=== PATIENT | female | born 1970 | race Caucasian/White ===

== ENCOUNTER 2017-01-28 09:56 | Inpatient (IN) | payer MEDICARE, OTHER ==
[2017-01-28] MEDS ORDERED: SODIUM CHLORIDE 0.9% 500 ML IV ONE (09:59)
--- NOTE | 2017-01-28 10:03 | ED ---
General Adult HPI - General Stated complaint: Overdose Time Seen by Provider: 01/28/17 09:56 Source: RN notes reviewed - History of Present Illness Initial comments: This is a 46-year-old female presents to the emergency department complaining of altered mental status. A therapist came to the house today and found her to be much more lethargic than normal. Patient is alert and oriented 3 but she easily falls asleep during conversation. Patient states she thinks she took an extra Valium today and that is why she is so tired. Patient also is on oxycodone and methadone. Patient denies any headache patient denies numbness weakness. Patient denies any lightheadedness dizziness or syncopal episode. Patient denies chest pain palpitations difficulty breathing or shortness of breath per patient denies abdominal pain patient denies nausea vomiting diarrhea. Patient states her left leg is swollen but it is always swollen she does not believe is any different than normal. Because her condition not sure how accurate this is we will the ultrasound in that leg. - Related Data Home Medications Medication Instructions Recorded Confirmed Sertraline [Zoloft] 150 mg PO HS 07/22/14 01/28/17 Gabapentin [Neurontin] 100 mg PO Q8H 05/29/16 01/28/17 Diazepam [Valium] 5 mg PO Q8H PRN 01/28/17 01/28/17 Methadone [Dolophine] 10 mg PO TID 01/28/17 01/28/17 Potassium Chloride [Klor-Con 20] 40 meq PO BID 01/28/17 01/28/17 busPIRone HCl [Buspar] 5 mg PO TID 01/28/17 01/28/17 oxyCODONE HCL 10 mg PO Q6HR PRN 01/28/17 01/28/17 oxyCODONE-APAP 10-325MG [Percocet 1 tab PO Q3H PRN 01/28/17 01/28/17 10-325 mg] traZODone HCL 100 mg PO HS 01/28/17 01/28/17 Allergies Allergy/AdvReac Type Severity Reaction Status Date / Time adhesive tape Allergy Rash/Hives Verified 01/28/17 10:30 egg Allergy Dyspnea Verified 01/28/17 10:30 codeine AdvReac Unknown Verified 01/28/17 10:30 furosemide [From Lasix] AdvReac Dyspnea Verified 01/28/17 10:30 ziprasidone HCl [From Geodon] AdvReac Unknown Verified 01/28/17 10:30 ziprasidone mesylate AdvReac Unknown Verified 01/28/17 10:30 [From Geodon] Review of Systems ROS Statement: Those systems with pertinent positive or pertinent negative responses have been documented in the HPI. ROS Other: All systems not noted in ROS Statement are negative. Past Medical History Past Medical History: Hypertension, Liver Disease, Osteoarthritis (OA) Additional Past Medical History / Comment(s): Chronic hepatitis C viral infection, IVDA specifically IV heroin use, polysubstance abuse, nephrolithiasis , glucoma, gout, sciatica and chronic back pain, seizure disorder, chronic pain and the patient has been maintained on methadone for heroin abuse. History of Any Multi-Drug Resistant Organisms: MRSA Date of last positivie culture/infection: 05/29/16 MDRO Source:: Blood Past Surgical History: Adenoidectomy, Section, Cholecystectomy, Tonsillectomy, Tubal Ligation Additional Past Surgical History / Comment(s): kidney surgeries to removed multiple kideny stones had stents since removed but pt stated has a double j catheter in place, x2 c-sections,tubes in ears(pt stated multiple times), lt eye sx(had infection in eye behind the pupil) Past Anesthesia/Blood Transfusion Reactions: Previous Problems w/ Anesthesia Additional Past Anesthesia/Blood Transfusion Reaction / Comment(s): can become combatative/violent when coming out of aa Past Psychological History: Depression Additional Psychological History / Comment(s): Single. Lives with her boyfriend. There is a fish tank in the home that he is taking care of. No other pets in the home. 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 No experience. No significant travel history. 2 adult children who are healthy. Smoking Status: Current every day smoker Past Alcohol Use History: None Reported Additional Past Alcohol Use History / Comment(s): smoking cessation booklet given to pt. pt denies any etoh use,but stated has been doing heroin since age 18-lat used sat 09-21-15 Past Drug Use History: Heroin Additional Drug Use History / Comment(s): pt stated last time heroin used was today 05-29-16 when asked how often she is using she stated pretty much every day again. - Past Family History Father Family Medical History: Diabetes Mellitus, Deep Vein Thrombosis (DVT), Hyperlipidemia, Hypertension Additional Family Medical History / Comment(s): nima cell cancer Mother Family Medical History: Diabetes Mellitus, Hyperlipidemia, Hypertension Brother(s) History Unknown: Yes Family Medical History: Diabetes Mellitus General Exam - General Exam Comments Initial Comments: GENERAL: Patient is well-developed and well-nourished. Patient is nontoxic and well- hydrated and is in no acute distress. Patient is lethargic and falls asleep easily during conversation but when you arouse her she is alert and oriented 3 ENT: Neck is soft and supple. No significant lymphadenopathy is noted. Oropharynx is clear. Moist mucous membranes. Neck has full range of motion without eliciting any pain. EYES: The sclera were anicteric and conjunctiva were pink and moist. Extraocular movements were intact and pupils were equal round and reactive to light. Eyelids were unremarkable. PULMONARY: Unlabored respirations. Good breath sounds bilaterally. No audible rales rhonchi or wheezing was noted. CARDIOVASCULAR: There is a regular rate and rhythm without any murmurs gallops or rubs. ABDOMEN: Soft and nontender with normal bowel sounds. No palpable organomegaly was noted. There is no palpable pulsatile mass. SKIN: Skin is clear with no lesions or rashes and otherwise unremarkable. NEUROLOGIC: Patient is alert and oriented x3. Cranial nerves II through XII are grossly intact. Motor and sensory are also intact. Normal speech, volume and content. Symmetrical smile. MUSCULOSKELETAL: Normal extremities with adequate strength and full range of motion. Left leg appears to be a little more swollen than the right and does appear to be slightly more erythematous. LYMPHATICS: No significant lymphadenopathy is noted PSYCHIATRIC: Normal psychiatric evaluation. Course Vital Signs 01/28/17 01/28/17 01/28/17 10:04 11:36 12:06 Temperature 97.0 F L Pulse Rate 77 78 87 Respiratory 16 2 L 18 Rate Blood Pressure 129/73 107/36 104/61 O2 Sat by Pulse 97 100 97 Oximetry 01/28/17 01/28/17 12:36 13:00 Temperature 97.1 F L Pulse Rate 78 77 Respiratory 16 16 Rate Blood Pressure 134/86 137/77 O2 Sat by Pulse 100 96 Oximetry Medical Decision Making - Medical Decision Making EKG shows normal sinus rhythm at 70 bpm ND interval 158 QRS is 92 QT interval 386 QTC is 440. Patient's EKG shows no ST segment elevation or depression or T- wave abnormality is noted Patient became more distended in the emergency department had be given Narcan and multiple cases and I started Narcan drip on the patient to keep her at least reasonably aroused. Patient and OF THE LEFT LARGE FROM IT DID NOT SHOW A DVT. PATIENT ALSO HAD A CHEST X-RAY SHOWED NO ACUTE ABNORMALITY. - Lab Data Result diagrams: 01/28/17 10:29 01/28/17 10:29 Lab Results 01/28/17 01/28/17 01/28/17 Range/Units 10:29 10: 10:29 WBC 6.1 (3.8-10.6) k/uL RBC 4.74 (3.80-5.40) m/uL Hgb 14.6 (11.4-16.0) gm/dL Hct 45.2 (34.0-46.0) % MCV 95.4 (80.0-100.0) fL MCH 30.7 (25.0-35.0) pg MCHC 32.2 (31.0-37.0) g/dL RDW 13.2 (11.5-15.5) % Plt Count 251 (150-450) k/uL Neutrophils % 75 % Lymphocytes % 16 % Monocytes % 5 % Eosinophils % 1 % Basophils % 1 % Neutrophils # 4.6 (1.3-7.7) k/uL Lymphocytes # 1.0 (1.0-4.8) k/uL Monocytes # 0.3 (0-1.0) k/uL Eosinophils # 0.1 (0-0.7) k/uL Basophils # 0.0 (0-0.2) k/uL Hypochromasia Slight PT (9.0-12.0) sec INR (<1.1) APTT (22.0-30.0) sec Sodium 144 (137-145) mmol/L Potassium 4.7 (3.5-5.1) mmol/L Chloride 109 H (98-107) mmol/L Carbon Dioxide 20 L (22-30) mmol/L Anion Gap 15 mmol/L BUN 20 H (7-17) mg/dL Creatinine 0.71 (0.52-1.04) mg/dL Est GFR (MDRD) Af Amer >60 (>60 ml/min/1.73 sqM) Est GFR (MDRD) Non-Af >60 (>60 ml/min/1.73 sqM) Glucose 92 (74-99) mg/dL POC Glucose (mg/dL) (75-99) mg/dL POC Glu Guest Relations Receptionist ID Calcium 9.9 (8.4-10.2) mg/dL Total Bilirubin 0.6 (0.2-1.3) mg/dL AST 122 H (14-36) U/L ALT 35 (9-52) U/L Alkaline Phosphatase 132 H (38-126) U/L Total Creatine Kinase 7829 H (30-135) U/L CK-MB (CK-2) 37.9 H* (0.0-2.4) ng/mL CK-MB (CK-2) Rel Index Troponin I <0.012 (0.000-0.034) ng/mL Total Protein 7.6 (6.3-8.2) g/dL Albumin 4.1 (3.5-5.0) g/dL Urine Color Urine Appearance (Clear) Urine pH (5.0-8.0) Ur Specific [place] (1.001-1.035) Urine Protein (Negative) Urine Glucose (UA) (Negative) Urine Ketones (Negative) Urine Blood (Negative) Urine Nitrate (Negative) Urine Bilirubin (Negative) Urine Urobilinogen (<2.0) mg/dL Ur Leukocyte Esterase (Negative) Urine RBC (0-5) /hpf Urine WBC (0-5) /hpf Ur Squamous Epith Cells (0-4) /hpf Urine Opiates Screen (NotDetected) Ur Oxycodone Screen (NotDetected) Urine Methadone Screen (NotDetected) Ur Propoxyphene Screen (NotDetected) Ur Barbiturates Screen (NotDetected) U Tricyclic Antidepress (NotDetected) Ur Phencyclidine Scrn (NotDetected) Ur Amphetamines Screen (NotDetected) U Methamphetamines Scrn (NotDetected) U Benzodiazepines Scrn (NotDetected) Urine Cocaine Screen (NotDetected) U Marijuana (THC) Screen (NotDetected) 01/28/17 01/28/17 01/28/17 Range/Units 10:29 10:29 10:50 WBC (3.8-10.6) k/uL RBC (3.80-5.40) m/uL Hgb (11.4-16.0) gm/dL Hct (34.0-46.0) % MCV (80.0-100.0) fL MCH (25.0-35.0) pg MCHC (31.0-37.0) g/dL RDW (11.5-15.5) % Plt Count (150-450) k/uL Neutrophils % % Lymphocytes % % Monocytes % % Eosinophils % % Basophils % % Neutrophils # (1.3-7.7) k/uL Lymphocytes # (1.0-4.8) k/uL Monocytes # (0-1.0) k/uL Eosinophils # (0-0.7) k/uL Basophils # (0-0.2) k/uL Hypochromasia PT 10.2 (9.0-12.0) sec INR 1.0 (<1.1) APTT 20.3 L (22.0-30.0) sec Sodium (137-145) mmol/L Potassium (3.5-5.1) mmol/L Chloride (98-107) mmol/L Carbon Dioxide (22-30) mmol/L Anion Gap mmol/L BUN (7-17) mg/dL Creatinine (0.52-1.04) mg/dL Est GFR (MDRD) Af Amer (>60 ml/min/1.73 sqM) Est GFR (MDRD) Non-Af (>60 ml/min/1.73 sqM) Glucose (74-99) mg/dL POC Glucose (mg/dL) (75-99) mg/dL POC Glu Guest Relations Receptionist ID Calcium (8.4-10.2) mg/dL Total Bilirubin (0.2-1.3) mg/dL AST (14-36) U/L ALT (9-52) U/L Alkaline Phosphatase (38-126) U/L Total Creatine Kinase (30-135) U/L CK-MB (CK-2) (0.0-2.4) ng/mL CK-MB (CK-2) Rel Index Troponin I (0.000-0.034) ng/mL Total Protein (6.3-8.2) g/dL Albumin (3.5-5.0) g/dL Urine Color Urine Appearance (Clear) Urine pH (5.0-8.0) Ur Specific [place] (1.001-1.035) Urine Protein (Negative) Urine Glucose (UA) (Negative) Urine Ketones (Negative) Urine Blood (Negative) Urine Nitrate (Negative) Urine Bilirubin (Negative) Urine Urobilinogen (<2.0) mg/dL Ur Leukocyte Esterase (Negative) Urine RBC (0-5) /hpf Urine WBC (0-5) /hpf Ur Squamous Epith Cells (0-4) /hpf Urine Opiates Screen Detected H (NotDetected) Ur Oxycodone Screen Detected H (NotDetected) Urine Methadone Screen Detected H (NotDetected) Ur Propoxyphene Screen Not Detected (NotDetected) Ur Barbiturates Screen Not Detected (NotDetected) U Tricyclic Antidepress Not Detected (NotDetected) Ur Phencyclidine Scrn Not Detected (NotDetected) Ur Amphetamines Screen Not Detected (NotDetected) U Methamphetamines Scrn Not Detected (NotDetected) U Benzodiazepines Scrn Detected H (NotDetected) Urine Cocaine Screen Not Detected (NotDetected) U Marijuana (THC) Screen Not Detected (NotDetected) 01/28/17 01/28/17 Range/Units 10:50 11:43 WBC (3.8-10.6) k/uL RBC (3.80-5.40) m/uL Hgb (11.4-16.0) gm/dL Hct (34.0-46.0) % MCV (80.0-100.0) fL MCH (25.0-35.0) pg MCHC (31.0-37.0) g/dL RDW (11.5-15.5) % Plt Count (150-450) k/uL Neutrophils % % Lymphocytes % % Monocytes % % Eosinophils % % Basophils % % Neutrophils # (1.3-7.7) k/uL Lymphocytes # (1.0-4.8) k/uL Monocytes # (0-1.0) k/uL Eosinophils # (0-0.7) k/uL Basophils # (0-0.2) k/uL Hypochromasia PT (9.0-12.0) sec INR (<1.1) APTT (22.0-30.0) sec Sodium (137-145) mmol/L Potassium (3.5-5.1) mmol/L Chloride (98-107) mmol/L Carbon Dioxide (22-30) mmol/L Anion Gap mmol/L BUN (7-17) mg/dL Creatinine (0.52-1.04) mg/dL Est GFR (MDRD) Af Amer (>60 ml/min/1.73 sqM) Est GFR (MDRD) Non-Af (>60 ml/min/1.73 sqM) Glucose (74-99) mg/dL POC Glucose (mg/dL) 86 (75-99) mg/dL POC Glu Guest Relations Receptionist ID Julianna Ko Calcium (8.4-10.2) mg/dL Total Bilirubin (0.2-1.3) mg/dL AST (14-36) U/L ALT (9-52) U/L Alkaline Phosphatase (38-126) U/L Total Creatine Kinase (30-135) U/L CK-MB (CK-2) (0.0-2.4) ng/mL CK-MB (CK-2) Rel Index Troponin I (0.000-0.034) ng/mL Total Protein (6.3-8.2) g/dL Albumin (3.5-5.0) g/dL Urine Color Light Red Urine Appearance Cloudy H (Clear) Urine pH 6.5 (5.0-8.0) Ur Specific [place] 1.016 (1.001-1.035) Urine Protein 2+ H (Negative) Urine Glucose (UA) Negative (Negative) Urine Ketones Negative (Negative) Urine Blood Large H (Negative) Urine Nitrate Negative (Negative) Urine Bilirubin Negative (Negative) Urine Urobilinogen <2.0 (<2.0) mg/dL Ur Leukocyte Esterase Moderate H (Negative) Urine RBC >182 H (0-5) /hpf Urine WBC 104 H (0-5) /hpf Ur Squamous Epith Cells 2 (0-4) /hpf Urine Opiates Screen (NotDetected) Ur Oxycodone Screen (NotDetected) Urine Methadone Screen (NotDetected) Ur Propoxyphene Screen (NotDetected) Ur Barbiturates Screen (NotDetected) U Tricyclic Antidepress (NotDetected) Ur Phencyclidine Scrn (NotDetected) Ur Amphetamines Screen (NotDetected) U Methamphetamines Scrn (NotDetected) U Benzodiazepines Scrn (NotDetected) Urine Cocaine Screen (NotDetected) U Marijuana (THC) Screen (NotDetected) Disposition Clinical Impression: Drug overdose Disposition: ADMITTED IP TO THIS [facility] Time of Disposition: 14:11
[2017-01-28 10:45] LABS: Basophils % (A) 1 %; CHCM 32.7; Eosinophils # (A) 0.1 k/uL (0-0.7); Eosinophils % (A) 1 %; HCT 45.2 % (34.0-46.0); HDW 3.26; HGB 14.6 gm/dL (11.4-16.0); Hypochromasia Slight; Luc # (Auto) 0.12; Luc % (Auto) 2; Lymphocytes % (A) 16 %; MCH 30.7 pg (25.0-35.0); MCHC 32.2 g/dL (31.0-37.0); MCV 95.4 fL (80.0-100.0); Mean Platelet Volume 6.4; Monocytes # (A) 0.3 k/uL (0-1.0); Monocytes % (A) 5 %; Neutrophils # (A) 4.6 k/uL (1.3-7.7); Neutrophils % (A) 75 %; RBC 4.74 m/uL (3.80-5.40); RDW 13.2 % (11.5-15.5); WBC 6.1 k/uL (3.8-10.6); WBC (Perox) 5.39
[2017-01-28 10:53] LABS: ALT 35 U/L (9-52); AST 122 U/L (14-36); Alkaline Phosphatase 132 U/L (38-126); Anion Gap 15 mmol/L; Blood Urea Nitrogen 20 mg/dL (7-17); Calcium 9.9 mg/dL (8.4-10.2); Carbon Dioxide 20 mmol/L (22-30); Chloride 109 mmol/L (98-107); Glucose 92 mg/dL (74-99); Non-African American GFR(MDRD) >60 (>60 ml/min/1.73 sqM); Potassium 4.7 mmol/L (3.5-5.1); Sodium 144 mmol/L (137-145); Total Bilirubin 0.6 mg/dL (0.2-1.3); Total Protein 7.6 g/dL (6.3-8.2)
[2017-01-28 10:54] LABS: Prothrombin Time 10.2 sec (9.0-12.0)
[2017-01-28 11:20] LABS: Troponin I <0.012 ng/mL (0.000-0.034)
[2017-01-28 11:22] LABS: Appearance,Urine Cloudy (Clear); Bilirubin,Urine Negative (Negative); Glucose,Urine (UA) Negative (Negative); Ketones,Urine Negative (Negative); Leukocyte Esterase,Urine Moderate (Negative); Nitrite,Urine Negative (Negative); PH, Urine 6.5 (5.0-8.0); Particle Count 4383; Protein,Urine 2+ (Negative); RBC,Urine >182 /hpf (0-5); Specific Gravity,Urine 1.016 (1.001-1.035); Squamous Epithelial Cell,Urine 2 /hpf (0-4); UA Billing (MACRO vs. MICRO) MICRO; Urobilinogen,Urine <2.0 mg/dL (<2.0); WBC,Urine 104 /hpf (0-5)
[2017-01-28 11:28] LABS: Creatine Kinase 7829 U/L (30-135)
[2017-01-28 11:29] LABS: Creatine Kinase MB 37.9 ng/mL (0.0-2.4)
[2017-01-28] MEDS ORDERED: SODIUM CHLORIDE 0.9% 1,000 ML IV ONE ×2 (11:30→14:17)
[2017-01-28] MEDS ORDERED: NALOXONE 0.4 MG/ML 10 ML VIAL IM STA (11:42)
[2017-01-28 11:51] LABS: Glucose,Whole Blood 86 mg/dL (75-99)
--- NOTE | 2017-01-28 12:41 | XR ---
EXAMINATION TYPE: XR chest 1V portable DATE OF EXAM: 01/28/2017 12:30 PM COMPARISON: 06/01/2016 HISTORY: Altered mental status TECHNIQUE: Single frontal view of the chest is obtained. FINDINGS: Subsegmental changes at the right lung base. Left lung clear. No pneumothorax or interstit ial edema. Heart size normal.. IMPRESSION: 1. Right basilar atelectasis or early infiltrate.
[2017-01-28] MEDS: NALOXONE 4 MG in SODIUM CHLORIDE 0.9% 100 ML IV SCH ×2 (14:13→22:28)
--- NOTE | 2017-01-28 14:42 | US ---
EXAMINATION TYPE: US venous doppler duplex LE LT DATE OF EXAM: 01/28/2017 1:18 PM COMPARISON: 10/03/2016 CLINICAL HISTORY: Pain. SIDE PERFORMED: Left VESSELS IMAGED: External Iliac Vein (EIV) Common Femoral Vein Deep Femoral Vein Greater Saphenous Vein * Femoral Vein Popliteal Vein Small Saphenous Vein * Proximal Calf Veins (* superficial vessels) Findings: Spontaneous flow and normal compressibility as visualized. IMPRESSION: 1. Limited exam due to patient's clinical condition. No diagnostic evidence of DVT
[2017-01-28 16:14] LABS: Glucose,Whole Blood 88 mg/dL (75-99)
--- NOTE | 2017-01-28 16:24 | P.CNPUL ---
History of Present Illness Consult date: 01/28/17 Requesting physician: Ramana Leblanc Reason for consult: other (Critical care management) Chief complaint: Lethargy History of present illness: This is a 46-year-old female patient who had been a patient of Dr. Radha Thornton in the past. She has a history of heroin use and currently maintained on methadone since May 2016, polysubstance abuse, hepatitis C infection, hypertension, nephrolithiasis with previous double J stent catheters in place, seizure disorder, chronic pain syndrome. She also has a history of MRSA bacteremia in May 2016. She has chronic and ongoing nicotine addiction. She was brought here to the emergency room earlier this morning after a therapist would stop at her house found her to be more lethargic than usual. She was alert and oriented but drifted off easily. The patient thought she may have taken extra Valium this morning which was why she was so tired. Her urine drug screen is positive for methadone, oxycodone, benzodiazepines and opiates. She had been given 2 mg of Narcan and initiated on a Narcan drip currently at 0.6 mg per hour. That was started at 2:30 today. She is seen today in consultation in the intensive care unit. She does arouse to verbal stimuli and appears to be oriented 2. She drifts off to sleep in the middle of sentences. She denies any shortness of breath. No cough or congestion. No chest pain or palpitations. No dizziness or lightheadedness. She did have complaints of left lower extremity discomfort. A Doppler was done in the ER which was negative for DVT. Her AST is 122, ALTs 35, alk phos 132. Her total creatinine kinase is 7829 with a CK-MB of 37.9. Urinalysis is cloudy with 2+ protein and a large amount of blood and moderate leukocytes. Her chest x-ray does reveal evidence of a right basilar atelectasis versus early infiltrate. She is maintaining good O2 saturations in the 90s on 2 L/m per nasal cannula. No acute respiratory distress. She is currently protecting her own airway. She is afebrile. Hemodynamically stable. Review of Systems ROS unobtainable: due to mental status Past Medical History Past Medical History: Hypertension, Liver Disease, Osteoarthritis (OA), Renal Disease Additional Past Medical History / Comment(s): Chronic hepatitis C viral infection, IVDA specifically IV heroin use-pt states last used 09/2016, polysubstance abuse, nephrolithiasis, 05/2016 pt had acute pulmonary edema, gout , sciatica and chronic back pain, seizure disorder-last seizue last night, chronic pain and the patient has been maintained on methadone for heroin abuse. History of Any Multi-Drug Resistant Organisms: MRSA Date of last positivie culture/infection: 05/29/16 MDRO Source:: Blood Past Surgical History: Adenoidectomy, Section, Cholecystectomy, Tonsillectomy, Tubal Ligation Additional Past Surgical History / Comment(s): kidney surgeries to removed multiple kidney stones had stents since removed but pt stated has a double j catheter in place, x2 c-sections,tubes in ears(pt stated multiple times), lt eye sx(had infection in eye behind the pupil) Past Anesthesia/Blood Transfusion Reactions: Previous Problems w/ Anesthesia Additional Past Anesthesia/Blood Transfusion Reaction / Comment(s): can become combatative/violent when coming out of aa Past Psychological History: Depression Additional Psychological History / Comment(s): Pt states she has depression and it is slightly increased lately but denied feelings of hopelessness, no suicidal thoughts or plans. She states she took too much of her pain medication for the "feeling" not to kill herself. Single. Lives with her boyfriend. No pets in the home. 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 No experience. No significant travel history. 2 adult children who are healthy. Smoking Status: Current every day smoker Past Alcohol Use History: None Reported Additional Past Alcohol Use History / Comment(s): smoking cessation booklet given to pt. pt denies any etoh use,but stated has been doing heroin since age 18-last used September 2016. Past Drug Use History: Heroin Additional Drug Use History / Comment(s): pt stated last time heroin used was in September 2016. - Past Family History Father Family Medical History: Diabetes Mellitus, Deep Vein Thrombosis (DVT), Hyperlipidemia, Hypertension Additional Family Medical History / Comment(s): nima cell cancer Mother Family Medical History: Diabetes Mellitus, Hyperlipidemia, Hypertension Brother(s) History Unknown: Yes Family Medical History: Diabetes Mellitus Medications and Allergies Home Medications Medication Instructions Recorded Confirmed Type Sertraline [Zoloft] 150 mg PO HS 07/22/14 01/28/17 History Gabapentin [Neurontin] 100 mg PO Q8H 05/29/16 01/28/17 History Diazepam [Valium] 5 mg PO Q8H PRN 01/28/17 01/28/17 History Methadone [Dolophine] 10 mg PO TID 01/28/17 01/28/17 History Potassium Chloride [Klor-Con 20] 40 meq PO BID 01/28/17 01/28/17 History busPIRone HCl [Buspar] 5 mg PO TID 01/28/17 01/28/17 History oxyCODONE HCL 10 mg PO Q6HR PRN 01/28/17 01/28/17 History oxyCODONE-APAP 10-325MG [Percocet 1 tab PO Q3H PRN 01/28/17 01/28/17 History 10-325 mg] traZODone HCL 100 mg PO HS 01/28/17 01/28/17 History Allergies Allergy/AdvReac Type Severity Reaction Status Date / Time adhesive tape Allergy Rash/Hives Verified 01/28/17 10:30 egg Allergy Dyspnea Verified 01/28/17 10:30 codeine AdvReac Unknown Verified 01/28/17 10:30 furosemide [From Lasix] AdvReac Dyspnea Verified 01/28/17 10:30 ziprasidone HCl [From Geodon] AdvReac Unknown Verified 01/28/17 10:30 ziprasidone mesylate AdvReac Unknown Verified 01/28/17 10:30 [From Geodon] Physical Exam Vitals: Vital Signs Temp Pulse Resp BP Pulse Ox 01/28/17 15:56 98 01/28/17 15:28 97.5 F L 81 16 130/83 100 01/28/17 14:40 87 16 130/73 100 GENERAL EXAM: Arousable, comfortable in no acute distress. HEAD: Normocephalic. EYES: Sluggish reaction of pupils, equal size. NOSE: Clear with pink turbinates. THROAT: No erythema or exudates. NECK: No masses, no JVD. CHEST: No chest wall deformity. LUNGS: Equal air entry with faint crackles in the left posterior base. Diminished. CVS: S1 and S2 normal with no audible murmurs, regular rhythm. ABDOMEN: Soft, normal bowel sounds, no guarding or rigidity. SPINE: No scoliosis or deformity SKIN: No rashes Extremities: There is no significant peripheral edema. No clubbing, no cyanosis. Peripheral pulses are intact. Results - Laboratory Findings CBC and BMP: 01/28/17 10:29 01/28/17 10:29 PT/INR, D-dimer PT 10.2 sec (9.0-12.0) 01/28/17 10:29 INR 1.0 (<1.1) 01/28/17 10:29 - Diagnostic Findings Chest x-ray: image reviewed (Right lower lobe atelectasis.) Assessment and Plan Plan: Impression: #1 Polysubstance overdose, unclear if intentional or accidental. Urine drug screen positive for oxycodone, methadone, benzodiazepines, and opiates. Received Narcan 1, currently on a Narcan drip at 0.6 mg per hour. #2 Rhabdomyolysis, current creatinine 7829. #3 History of hepatitis C. #4 History of heroin abuse, currently on methadone. #5 Suspect urinary tract infection, cultures pending. #6 Right lower lung atelectasis versus possible early infiltrate, suspect aspiration. #7 History of seizure disorder. #8 Hypertension. #9 Osteoarthritis. #10 History of MRSA bacteremia in May 2016. #11 History of chronic back pain. Plan: The patient was seen and evaluated by Dr. Thomas. We will continue her Narcan drip to complete 6 hours. Her chest x-ray and labs were reviewed. We'll continue with her IV of 0.9 normal saline at 100 MLS per hour. We'll add antibiotics in the form of Zosyn. We will initiate bronchodilators. We'll repeat her chest x-ray in the a.m. We will add heparin subcutaneous for DVT prophylaxis and Protonix for GI prophylaxis. We'll continue to monitor her here in the intensive care unit. We will continue to follow and make further recommendations based on her clinical status.
[2017-01-28] MEDS ORDERED: NALOXONE 0.4 MG/ML 1 ML VIAL IV PRN (16:25)
[2017-01-28] MEDS ORDERED: ACETAMINOPHEN TAB 325 MG TAB PO PRN (16:25)
[2017-01-28] MEDS: PIPERACILLIN-TAZOBACTAM 3.375 GM in DEXTROSE/WATER 1 50ML.BAG IVPB SCH ×2 (17:43→23:23)
[2017-01-28] MEDS: PANTOPRAZOLE 40 MG/10 ML VIAL IV SCH (17:44)
[2017-01-28] MEDS: IPRATROPIUM-ALBUTEROL 3 ML NEB INHALATION SCH ×2 (18:57→23:01)
[2017-01-28] MEDS: HEPARIN SODIUM,PORCINE 5,000 UNIT/ML 1 ML VIAL SQ SCH (23:23)
[2017-01-29] MEDS: IPRATROPIUM-ALBUTEROL 3 ML NEB INHALATION SCH ×5 (03:40→18:47)
[2017-01-29] MEDS: NALOXONE 4 MG in SODIUM CHLORIDE 0.9% 100 ML IV SCH (05:09)
[2017-01-29 05:13] LABS: Basophils % (A) 0 %; CH 31.1; CHCM 32.7; Eosinophils # (A) 0.1 k/uL (0-0.7); Eosinophils % (A) 3 %; HCT 31.9 % (34.0-46.0); HDW 3.13; Hypochromasia Slight; Luc % (Auto) 3; Lymphocytes # (A) 1.3 k/uL (1.0-4.8); Lymphocytes % (A) 42 %; MCH 31.5 pg (25.0-35.0); MCHC 32.8 g/dL (31.0-37.0); MCV 95.8 fL (80.0-100.0); Mean Platelet Volume 6.6; Monocytes # (A) 0.2 k/uL (0-1.0); Monocytes % (A) 6 %; Neutrophils # (A) 1.4 k/uL (1.3-7.7); Neutrophils % (A) 46 %; RBC 3.32 m/uL (3.80-5.40); RDW 13.1 % (11.5-15.5); WBC 3.1 k/uL (3.8-10.6); WBC (Perox) 3.26
[2017-01-29 05:16] LABS: HGB 10.5 gm/dL (11.4-16.0)
[2017-01-29 05:23] LABS: Anion Gap 7 mmol/L; Blood Urea Nitrogen 15 mg/dL (7-17); Calcium 8.9 mg/dL (8.4-10.2); Carbon Dioxide 24 mmol/L (22-30); Chloride 111 mmol/L (98-107); Glucose 80 mg/dL (74-99); Magnesium 1.9 mg/dL (1.6-2.3); Non-African American GFR(MDRD) >60 (>60 ml/min/1.73 sqM); Phosphorous 2.9 mg/dL (2.5-4.5); Potassium 3.1 mmol/L (3.5-5.1); Sodium 142 mmol/L (137-145)
[2017-01-29] MEDS ORDERED: Potassium Replacement Protocol 1 EACH MISC MISCELLANE PRN (06:11)
[2017-01-29] MEDS ORDERED: Magnesium Replacement Protocol 1 EACH MISC MISCELLANE PRN (06:13)
[2017-01-29] MEDS: POTASSIUM CHLORIDE ER 20 MEQ TAB.ER PO SCH ×4 (06:55→21:47)
[2017-01-29] MEDS: MAGNESIUM SULFATE-D5W PMX 1 GM in DEXTROSE/WATER 1 100ML.BAG IVPB SCH ×2 (06:55→08:11)
[2017-01-29] MEDS: HEPARIN SODIUM,PORCINE 5,000 UNIT/ML 1 ML VIAL SQ SCH ×3 (08:11→23:40)
[2017-01-29] MEDS: PIPERACILLIN-TAZOBACTAM 3.375 GM in DEXTROSE/WATER 1 50ML.BAG IVPB SCH (08:27)
[2017-01-29] MEDS: PANTOPRAZOLE 40 MG/10 ML VIAL IV SCH (08:27)
--- NOTE | 2017-01-29 11:08 | P.PN ---
Subjective Principal diagnosis: Acute drug overdose This is a 46-year-old female patient who had been a patient of Dr. Radha Thornton in the past. She has a history of heroin use and currently maintained on methadone since May 2016, polysubstance abuse, hepatitis C infection, hypertension, nephrolithiasis with previous double J stent catheters in place, seizure disorder, chronic pain syndrome. She also has a history of MRSA bacteremia in May 2016. She has chronic and ongoing nicotine addiction. She was brought here to the emergency room earlier this morning after a therapist would stop at her house found her to be more lethargic than usual. She was alert and oriented but drifted off easily. The patient thought she may have taken extra Valium this morning which was why she was so tired. Her urine drug screen is positive for methadone, oxycodone, benzodiazepines and opiates. She had been given 2 mg of Narcan and initiated on a Narcan drip currently at 0.6 mg per hour. That was started at 2:30 today. She is seen today in consultation in the intensive care unit. She does arouse to verbal stimuli and appears to be oriented 2. She drifts off to sleep in the middle of sentences. She denies any shortness of breath. No cough or congestion. No chest pain or palpitations. No dizziness or lightheadedness. She did have complaints of left lower extremity discomfort. A Doppler was done in the ER which was negative for DVT. Her AST is 122, ALTs 35, alk phos 132. Her total creatinine kinase is 7829 with a CK-MB of 37.9. Urinalysis is cloudy with 2+ protein and a large amount of blood and moderate leukocytes. Her chest x-ray does reveal evidence of a right basilar atelectasis versus early infiltrate. She is maintaining good O2 saturations in the 90s on 2 L/m per nasal cannula. No acute respiratory distress. She is currently protecting her own airway. She is afebrile. Hemodynamically stable. Patient was reevaluated today on 01/29/2017, and she is doing quite well. Patient is off Narcan drip, she is alert awake oriented and in no form of distress. All her labs were reviewed, potassium is a bit low at 3.1, that'll be corrected as per protocol. Considering the patient is quite stable, I plan to transfer the patient out of the ICU to a regular medical floor. Objective - Vital Signs Vital signs: Vital Signs Temp 97.8 F 01/29/17 08:00 Pulse 72 01/29/17 08:00 Resp 17 01/29/17 08:00 BP 104/71 01/29/17 08:00 Pulse Ox 94 L 01/29/17 08:00 Intake & Output 01/28/17 01/29/17 01/29/17 18:59 06:59 18:59 Intake Total 370.0 540 250 Output Total 500 550 Balance 370.0 40 -300 Intake: IV 345 300 Naloxone 4 mg In Sodium 45 Chloride 0.9% 100 ml @ 0. 6 MG/HR 16.5 mls/hr IV . Q6H40M [facility] Rx#:[id number] Sodium Chloride 0.9% 1, 300 300 000 ml @ 100 mls/hr IV . Q10H [facility] Rx#:[id number] Intake, IV Titration 25.0 250 Amount Magnesium Sulfate-D5w Pmx 200 1 gm In Dextrose/Water 1 100ml.bag @ 100 mls/hr IVPB Q1H [facility] Rx#: [id number] Piperacillin-Tazobactam 3 25.0 50 .375 gm In Dextrose/Water 1 50ml.bag @ 12.5 mls/hr IVPB Q8HR [facility] Rx#: [id number] Oral 120 Blood Product 120 Output: Urine 500 Stool 550 Other: Voiding Method Bedpan Bedpan Bedpan # Voids 1 1 - Exam GENERAL EXAM: Alert oriented 3 in no distress. HEAD: Normocephalic. EYES: Sluggish reaction of pupils, equal size. NOSE: Clear with pink turbinates. THROAT: No erythema or exudates. NECK: No masses, no JVD. CHEST: No chest wall deformity. LUNGS: Equal air entry with faint crackles in the left posterior base. Diminished. CVS: S1 and S2 normal with no audible murmurs, regular rhythm. ABDOMEN: Soft, normal bowel sounds, no guarding or rigidity. SPINE: No scoliosis or deformity SKIN: No rashes Extremities: There is no significant peripheral edema. No clubbing, no cyanosis. Peripheral pulses are intact. - Labs CBC & Chem 7: 01/29/17 04:45 01/29/17 04:45 Labs: Abnormal Lab Results - Last 24 Hours (Table) 01/29/17 01/29/17 Range/Units 04:45 04:45 WBC 3.1 L (3.8-10.6) k/uL RBC 3.32 L (3.80-5.40) m/uL Hgb 10.5 L D (11.4-16.0) gm/dL Hct 31.9 L (34.0-46.0) % Potassium 3.1 L (3.5-5.1) mmol/L Chloride 111 H (98-107) mmol/L Assessment and Plan Plan: #1 Polysubstance overdose, unclear if intentional or accidental. Urine drug screen positive for oxycodone, methadone, benzodiazepines, and opiates. Received Narcan 1, and Narcan drip which was discontinued last night. #2 Rhabdomyolysis, continue to monitor CPK, continue IV fluids #3 History of hepatitis C. #4 History of heroin abuse, currently on methadone. #5 Suspect urinary tract infection, cultures pending. #6 Right lower lung atelectasis versus possible early infiltrate, suspect aspiration. #7 History of seizure disorder. #8 Hypertension. #9 Osteoarthritis. #10 History of MRSA bacteremia in May 2016. #11 History of chronic back pain. Recommendation: Transfer patient to a regular medical floor, continue IV fluids , and possible discharge planning in the next 24-48 hours. We'll see the patient on when necessary basis. Time with Patient: Less than 30
--- NOTE | 2017-01-29 13:20 | CDI ---
In responding to this query, please exercise your independent professional judgment. The [facility] Coding Staff and Clinical Documentation Specialists appreciate your assistance in clarifying documentation, maintaining compliance with coding guidelines, accurately documenting patients condition and capturing severity of illness. The fact that a question is asked does not imply that any particular answer is desired or expected. Communication forms are a method of clarifying documentation and are not made part of the Legal Health Record. Thank you in advance for your clarification. Last Revision, September 2015 Giorgio Carroll [address] [facility] [place] [address] Documentation Clarification Form Date: 01/29/2017 11:45:00 AM From: Della Prerna Admit Date: 01/28/2017 2:11:00 PM Patient Name: Aisha Medina Visit Number: [id number] Discharge Date: Dr. Liz Thomas Right lower lung atelectasis vs possible early infiltrate, suspect aspiration was documented in your notes on 01/28/17. History/Risk Factors: Hepatitis C, Heroin Abuse, Seizure disorder, Current smoker Clinical Indicators: Found to be much more lethargic, orientated x2 falls asleep during conversation. Denies nausea, vomiting diarrhea. Urine drug screen is positive. Vital Signs: WBC 6.1, Chest X-ray: Right basilar atelectasis or early infiltrate. Lung/Breathing assessment: Equal air entry with faint crackles in the left posterior base. Diminished 92 % 2/L NC. Treatment: Narcan drip Zosyn IV Bronchodilators .9 normal saline@ 100/mls hr In order to capture the severity of condition, please further clarify if the condition signifies and you are treating for: Aspiration Pneumonia, identify if: Due to solids or liquids Bacterial Pneumonia, specify causal organism (if known) Gram Negative Pneumonia Due to Strep Due to Staph Due to E. Coli Other bacteria (specify) Healthcare Acquired Pneumonia/Pneumonia, unspecified Unable to determine Or clarify if the condition (aspiration) has been ruled out. Link any associated conditions to the pneumonia: Please document in your progress notes in order to capture severity of illness and risk of mortality. Include clinical findings that support your diagnosis. FYI: Press F11 to launch patient chart. Place X here if this finding has no clinical significance, is not applicable or if you are not able to provide any additional documentation. MTDD
[2017-01-29] MEDS: KETOROLAC 30 MG/ML 1 ML VIAL IVP PRN (14:39)
[2017-01-29] MEDS: LACTATED RINGERS 1,000 ML IV SCH ×2 (14:40→22:59)
[2017-01-29 15:52] VITALS: RESP 16
[2017-01-29] MEDS: GABAPENTIN 100 MG CAP PO SCH ×2 (16:08→21:47)
[2017-01-29] MEDS ORDERED: IPRATROPIUM-ALBUTEROL 3 ML NEB INHALATION PRN (18:40)
--- NOTE | 2017-01-29 20:06 | HP ---
DATE OF ADMISSION: 01/28/2017 The patient is a 46 -year-old admitted secondary to methadone overdose and patient does have history of heroin use and hepatitis C in the past. The patient is admitted to ICU. Patient is clinically doing well and was subsequently transferred down here. Patient has elevated creatinine kinase and possible rhabdomyolysis because of which we will continue with IV fluids and recheck the kidney function tomorrow and patient is using extensive amount of narcotics including oxycodone acetaminophen combination that is Percocet along with methadone and Gabapentin. Counseling regarding that was provided and patient will be started on ketorolac. Methadone can be restarted later today as she is doing clinically okay to avoid any opiate withdrawals and CK is coming down . Potassium is low which will be supplemented. REVIEW OF SYSTEMS: CONSTITUTIONAL: No fever, no malaise, no fatigue. HEENT: No recent visual problems or hearing problems. Denied any sore throat. CARDIOVASCULAR: No chest pain, orthopnea, PND, no palpitations, no syncope. PULMONARY: No shortness of breath, no cough, no hemoptysis. GASTROINTESTINAL: No diarrhea, no nausea, no vomiting, no abdominal pain. Normoactive bowel sounds. NEUROLOGICAL: No headaches, no weakness, no numbness. HEMATOLOGICAL: Denies any bleeding or petechiae. GENITOURINARY: Denies any burning micturition, frequency, or urgency. MUSCULOSKELETAL/RHEUMATOLOGICAL: Continued pain in the right hip as she had a hip replacement. ENDOCRINE: Denies any polyuria or polydipsia. The rest of the 14 point review of systems is negative. PAST MEDICAL HISTORY: Hypertension, hepatitis C, osteoarthritis, renal disease, adenoidectomy and section in the past. SOCIAL HISTORY: The patient does smoke more than a pack per day. Denied any alcohol abuse. History of heroin use in the past with hepatitis C. FAMILY HISTORY: Significant for Diabetes mellitus, DVT and hyperlipidemia, hypertension, mother had diabetes mellitus, hyperlipidemia, hypertension, brother had diabetes mellitus. Home medications include: 1. Sertraline. 2. Gabapentin. 3. Diazepam. 4. Methadone. 5. Potassium chloride. 6. Buspirone. 7. Oxycodone. 8. Trazodone. ALLERGIES: PLEASE REFER TO THE CHART. VITAL SIGNS: Temperature 97.1, ( ), respiratory rate of 16, blood pressure 113/83. Saturating at 100% on room air. PHYSICAL EXAMINATION: GENERAL: The patient is alert and oriented x3, not in any acute distress. Well developed, well nourished. HEENT: Pupils are round and equally reacting to light. EOMI. No scleral icterus. No conjunctival pallor. Normocephalic, atraumatic. No pharyngeal erythema. No thyromegaly. CARDIOVASCULAR: S1 and S2 present. No murmurs, rubs, or gallops. PULMONARY: Chest is clear to auscultation, no wheezing or crackles. ABDOMEN: Soft, nontender, nondistended, normoactive bowel sounds. No palpable organomegaly. MUSCULOSKELETAL: No joint swelling or deformity. EXTREMITIES: No cyanosis, clubbing, or pedal edema. NEUROLOGICAL: Gross neurological examination did not reveal any focal deficits. SKIN: No rashes. LABORATORY DATA: CBC, CMP are abnormal for low WBC of 3100, hemoglobin of 10.5, CK of 3000/102 now, potassium 3.0 which will be supplemented. UA showed moderate leukocyte esterase. ( ) RBC and WBC 104 without any signs or symptoms of urinary tract infection. Patient has asymptomatic bacteria which does not need any antibiotics. Antibiotics were discontinued. Urine is positive for opiates, oxycodone, methadone and benzodiazepines. ASSESSMENT AND PLAN: 1. Multiple polysubstance abuse without any suicidal ideations. Patient will be continued on IV fluids. 2. Rhabdomyolysis, IV fluids for one more day and repeat CT tomorrow. Possibility of discharge tomorrow. We will obtain PT and OT evaluation as patient is complaining that she cannot stand, she has difficult ambulating post hip surgery. 3. History of hepatitis C will need follow-up as an outpatient with gastroenterology. 4. Heroin abuse, methadone abuse. 5. Depression. 6. Asymptomatic bacteria which does not need any antibiotics. 7. Right lower lung atelectasis without any pneumonia. 8. Seizure disorder. 9. Hypertension. 10. Osteoarthritis. 11. Chronic low back pain. 12. History of bacteremia with Methicillin-resistant Staph aureus in the past. PLAN: IV fluids. Repeat electrolytes tomorrow. Possibility of discharge tomorrow to home with home care and extensive counseling regarding opiate abuse was provided. Patient will be given ketorolac and restarted on methadone tonight. Patient will need DVT prophylaxis.
[2017-01-29] MEDS ORDERED: SERTRALINE 100 MG TAB PO SCH (21:00)
[2017-01-29] MEDS: METHADONE 10 MG TAB PO SCH (21:47)
[2017-01-30] MEDS: KETOROLAC 30 MG/ML 1 ML VIAL IVP PRN ×2 (00:59→07:48)
[2017-01-30] MEDS: GABAPENTIN 100 MG CAP PO SCH (04:55)
[2017-01-30 07:37] LABS: Basophils % (A) 1 %; CH 30.8; CHCM 31.7; Eosinophils # (A) 0.1 k/uL (0-0.7); Eosinophils % (A) 4 %; HDW 3.09; HGB 11.2 gm/dL (11.4-16.0); Hypochromasia Slight; Luc # (Auto) 0.09; Luc % (Auto) 3; Lymphocytes # (A) 1.2 k/uL (1.0-4.8); Lymphocytes % (A) 39 %; MCH 32.4 pg (25.0-35.0); Mean Platelet Volume 7.4; Monocytes # (A) 0.2 k/uL (0-1.0); Monocytes % (A) 7 %; Neutrophils # (A) 1.4 k/uL (1.3-7.7); Neutrophils % (A) 46 %; RBC 3.47 m/uL (3.80-5.40); RDW 13.2 % (11.5-15.5); WBC (Perox) 3.21
[2017-01-30] MEDS: LACTATED RINGERS 1,000 ML IV SCH (07:42)
[2017-01-30] MEDS: PANTOPRAZOLE 40 MG/10 ML VIAL IV SCH (07:43)
[2017-01-30] MEDS: HEPARIN SODIUM,PORCINE 5,000 UNIT/ML 1 ML VIAL SQ SCH (07:43)
[2017-01-30] MEDS: METHADONE 10 MG TAB PO SCH (07:50)
[2017-01-30 08:05] LABS: ALT 35 U/L (9-52); AST 105 U/L (14-36); Alkaline Phosphatase 95 U/L (38-126); Anion Gap 9 mmol/L; Blood Urea Nitrogen 14 mg/dL (7-17); Calcium 9.1 mg/dL (8.4-10.2); Carbon Dioxide 24 mmol/L (22-30); Chloride 112 mmol/L (98-107); Creatine Kinase 1479 U/L (30-135); Glucose 85 mg/dL (74-99); Non-African American GFR(MDRD) >60 (>60 ml/min/1.73 sqM); Potassium 4.4 mmol/L (3.5-5.1); Sodium 145 mmol/L (137-145); Total Bilirubin 0.3 mg/dL (0.2-1.3); Total Protein 6.4 g/dL (6.3-8.2)
[2017-01-30 08:37] VITALS: BP 130/89; PULSE 72; TEMP 97
[2017-01-30] MEDS ORDERED: NICOTINE 21MG/24HR PATCH TRANSDERM STA (08:45)
[2017-01-30] MEDS: IPRATROPIUM-ALBUTEROL 3 ML NEB INHALATION SCH (09:31)
--- NOTE | 2017-01-30 12:24 | P.PN ---
Subjective Principal diagnosis: Acute drug overdose This is a 46-year-old female, has a history of heroin use and currently maintained on methadone since May 2016, polysubstance abuse, hepatitis C infection, hypertension, nephrolithiasis with previous double J stent catheters in place, seizure disorder, chronic pain syndrome. She also has a history of MRSA bacteremia in May 2016. She has chronic and ongoing nicotine addiction. She was brought here to the emergency room earlier this morning after a therapist would stop at her house found her to be more lethargic than usual. She was alert and oriented but drifted off easily. The patient thought she may have taken extra Valium this morning which was why she was so tired. Her urine drug screen is positive for methadone, oxycodone, benzodiazepines and opiates. She had been given 2 mg of Narcan and initiated on a Narcan drip currently at 0.6 mg per hour. That was started at 2:30 today. She is seen today in consultation in the intensive care unit. She does arouse to verbal stimuli and appears to be oriented 2. She drifts off to sleep in the middle of sentences. She denies any shortness of breath. No cough or congestion. No chest pain or palpitations. No dizziness or lightheadedness. She did have complaints of left lower extremity discomfort. A Doppler was done in the ER which was negative for DVT. Her AST is 122, ALTs 35, alk phos 132. Her total creatinine kinase is 7829 with a CK-MB of 37.9. Urinalysis is cloudy with 2+ protein and a large amount of blood and moderate leukocytes. Her chest x-ray does reveal evidence of a right basilar atelectasis versus early infiltrate. She is maintaining good O2 saturations in the 90s on 2 L/m per nasal cannula. No acute respiratory distress. She is currently protecting her own airway. She is afebrile. Hemodynamically stable. Patient was reevaluated today on 01/29/2017, and she is doing quite well. Patient is off Narcan drip, she is alert awake oriented and in no form of distress. All her labs were reviewed, potassium is a bit low at 3.1, that'll be corrected as per protocol. Considering the patient is quite stable, I plan to transfer the patient out of the ICU to a regular medical floor. Patient was reevaluated today on 01/30/2017, seems to be doing quite well, relatively asymptomatic. No cough no wheezing no shortness of breath, went back and reviewed her chest x-ray, it was mostly consistent with atelectasis, no evidence of infiltrate, and considering that the patient has no active pulmonary symptoms, the findings seen initially are not findings of pneumonia. No evidence of right lower lobe pneumonia or aspiration. Labs today were reviewed relatively normal electrolytes are relatively normal CBC except for WBC count of 3.0 hemoglobin is 11.2. Patient is actually requesting to be discharged home today and I believe that is very appropriate. CPK is down to 1479 and her renal profile remained normal. Objective - Vital Signs Vital signs: Vital Signs Temp 97.0 F L 01/30/17 08:37 Pulse 72 01/30/17 08:37 Resp 16 01/30/17 08:37 BP 130/89 01/30/17 08:37 Pulse Ox 99 01/30/17 08:37 Intake & Output 01/29/17 01/30/17 01/30/17 18:59 06:59 18:59 Intake Total 1050 1720 Output Total 1650 0 Balance -600 1720 0 Intake: IV 400 Sodium Chloride 0.9% 1, 400 000 ml @ 100 mls/hr IV . Q10H [facility] Rx#:[id number] Intake, IV Titration 250 1000 Amount Lactated Ringers 1,000 ml 1000 @ 125 mls/hr IV .Q8H [facility] Rx#:[id number] Magnesium Sulfate-D5w Pmx 200 1 gm In Dextrose/Water 1 100ml.bag @ 100 mls/hr IVPB Q1H [facility] Rx#: [id number] Piperacillin-Tazobactam 3 50 .375 gm In Dextrose/Water 1 50ml.bag @ 12.5 mls/hr IVPB Q8HR [facility] Rx#: [id number] Oral 400 720 Output: Urine 0 0 Stool 1650 Other: Voiding Method Bedpan Bedpan Bedpan # Voids 3 1 1 - Exam GENERAL EXAM: Alert oriented 3 in no distress. HEAD: Normocephalic. EYES: Sluggish reaction of pupils, equal size. NOSE: Clear with pink turbinates. THROAT: No erythema or exudates. NECK: No masses, no JVD. CHEST: No chest wall deformity. LUNGS: Clear bilaterally no crackles or rhonchi or wheezes CVS: S1 and S2 normal with no audible murmurs, regular rhythm. ABDOMEN: Soft, normal bowel sounds, no guarding or rigidity. SPINE: No scoliosis or deformity SKIN: No rashes Extremities: There is no significant peripheral edema. No clubbing, no cyanosis. Peripheral pulses are intact. - Labs CBC & Chem 7: 01/30/17 07:01 01/30/17 07:01 Labs: Abnormal Lab Results - Last 24 Hours (Table) 01/29/17 01/30/17 01/30/17 Range/Units 10:47 07:01 07:01 WBC 3.0 L (3.8-10.6) k/uL RBC 3.47 L (3.80-5.40) m/uL Hgb 11.2 L (11.4-16.0) gm/dL Chloride 112 H (98-107) mmol/L AST 105 H (14-36) U/L Creatine Kinase 3102 H 1479 H (30-135) U/L Albumin 3.3 L (3.5-5.0) g/dL Assessment and Plan Plan: #1 Polysubstance overdose, unclear if intentional or accidental. Urine drug screen positive for oxycodone, methadone, benzodiazepines, and opiates. Received Narcan 1, and Narcan drip which was discontinued while she was in the ICU 2 days ago. #2 acute rhabdomyolysis, improving, CPK is much better today compared to 2 days ago. Renal profile remained normal. #3 History of hepatitis C. #4 History of heroin abuse, currently on methadone. #5 Suspect urinary tract infection, cultures pending. #6 Right lower lung atelectasis , no evidence of pneumonia, patient has no active pulmonary symptoms today, this is unlikely for any pneumonia to resolve within a very short period of time. Hence I believe pneumonia was ruled out clinically. #8 Hypertension. #9 Osteoarthritis. #10 History of MRSA bacteremia in May 2016. #11 History of chronic back pain. #12 history of seizure disorder. Recommendation: Discontinue antibiotics, consider discharge planning today or tomorrow. No need for further pulmonary follow-up. Time with Patient: Less than 30
--- NOTE | 2017-01-30 12:48 | DS ---
DATE OF ADMISSION: 01/28/2017 DATE OF DISCHARGE: 01/30/2017 A 46-year-old year-old admitted with methadone overdose, improved with Narcan. Patient is clinically doing well. Patient is on methadone, oxycodone and oxycodone acetaminophen combination. Oxycodone acetaminophen will be discontinued. Patient does have a history of hepatitis C and IV drug use. Counseling regarding opiates was provided. Patient is clinically doing well. Patient was seen and examined on day of discharge. Vitals are stable. PHYSICAL EXAMINATION: GENERAL: The patient is alert and oriented x3, not in any acute distress. Well developed, well nourished. HEENT: Pupils are round and equally reacting to light. EOMI. No scleral icterus. No conjunctival pallor. Normocephalic, atraumatic. No pharyngeal erythema. No thyromegaly. CARDIOVASCULAR: S1 and S2 present. No murmurs, rubs, or gallops. PULMONARY: Chest is clear to auscultation, no wheezing or crackles. ABDOMEN: Soft, nontender, nondistended, normoactive bowel sounds. No palpable organomegaly. MUSCULOSKELETAL: No joint swelling or deformity. EXTREMITIES: No cyanosis, clubbing, or pedal edema. NEUROLOGICAL: Gross neurological examination did not reveal any focal deficits. SKIN: No rashes. FINAL DIAGNOSES: 1. Polysubstance abuse without any suicidal ideations. 2. Rhabdomyolysis, which improved with IV fluids without any problems of the kidney. 3. History of hepatitis C. Will need to follow up as an outpatient in with Gastroenterology. 4. Heroin abuse history, on methadone. 5. Asymptomatic bacteria which does not warrant any antibiotics. 6. Right lower lung atelectasis without any pneumonia. 7. Depression. 8. Seizure disorder. 9. Hypertension. 10. Osteoarthritis. 11. Chronic low back pain. 12. Right hip surgery a couple of months ago, because of which she was using apparently a lot of pain medications. Patient will be discharged today. Please refer to my depart summary for further details of discharge medications. Activity as tolerated. Regular diet. Patient will follow up with her physician in 3 to 7 days. [facility] follow the patient. I spent greater than 35 minutes in total discharge process.
== END 2017-01-30 11:35 | disposition home or self-care (01) | DRG 918 ==
LOC: EC 09:56 → 6ICU 14:11 → 5MS5E 01-29 10:02
PROVIDERS: ADMIT Internal Medicine; ATTEND Internal Medicine
DX: T40.3X1A Poisoning by methadone, accidental (unintentional), initial encounter (principal); M62.82 Rhabdomyolysis; J98.11 Atelectasis; N39.0 Urinary tract infection, site not specified; I10 Essential (primary) hypertension; F32.9 Major depressive disorder, single episode, unspecified; F11.10 Opioid abuse, uncomplicated; B18.2 Chronic viral hepatitis C; F17.200 Nicotine dependence, unspecified, uncomplicated; G40.909 Epilepsy, unspecified, not intractable, without status epilepticus; G89.4 Chronic pain syndrome; M10.9 Gout, unspecified; M19.90 Unspecified osteoarthritis, unspecified site; M54.30 Sciatica, unspecified side; H40.9 Unspecified glaucoma; M54.9 Dorsalgia, unspecified; T50.901A Poisoning by unspecified drugs, medicaments and biological substances, accidental (unintentional), initial encounter; F19.10 Other psychoactive substance abuse, uncomplicated; Z79.899 Other long term (current) drug therapy; Z86.14 Personal history of Methicillin resistant Staphylococcus aureus infection; Z88.5 Allergy status to narcotic agent; Z88.8 Allergy status to other drugs, medicaments and biological substances; Z82.49 Family history of ischemic heart disease and other diseases of the circulatory system; Y92.9 Unspecified place or not applicable
CPT/HCPCS: 36415; 71010; 80048; 80053; 80306; 81001; 82550; 82553; 83735; 84100; 84132; 84484; 85025; 85610; 85730; 93005; 94640; 96361; 96365; 96372; 99285